=== PATIENT | male | born 1990 | race Hispanic/Latino ===

== ENCOUNTER 2023-06-04 14:36 | Emergency (ER) | payer OTHER ==
[~2023-06-04] VITALS: Ht 180.3 cm; Wt 88.0 kg
[2023-06-04 14:54] VITALS: TEMP 102.9
[2023-06-04] MEDS: ACETAMINOPHEN 500 MG TABLET PO ONE (14:54)
[2023-06-04 15:21] LABS: SARS-CoV-2, RNA, NAAT NEGATIVE SARS CoV-2 (NEGATIVE)
[2023-06-04 15:22] LABS: INFLUENZA TYPE A Negative For Type A (NEGATIVE); INFLUENZA TYPE B Negative For Type B (NEGATIVE)
[2023-06-04] MEDS ORDERED: IBUP-2071 PO (17:08)
[2023-06-04 17:24] VITALS: BP 131/80; PULSE 96; RESP 18; O2SAT 98
== END 2023-06-04 17:23 | disposition home or self-care (01) ==
LOC: EDH 14:36
DX: G44.209 Tension-type headache, unspecified, not intractable (principal); Z20.822 Contact with and (suspected) exposure to COVID-19
CPT/HCPCS: 87635; 87804